=== PATIENT | female | born 1960 | race Caucasian/White ===

== ENCOUNTER → 2019-07-11 13:56 | Outpatient (CLI) | payer OTHER, SELFPAY ==
--- NOTE | 2019-07-11 | DI.RAD.S_ITS ---
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 COMPARISON: None. FINDINGS: Bones: No fractures or dislocations. No suspicious bony lesions. Visualized ribs appear intact. Mild AC joint degeneration. Mild glenohumeral degenerative joint disease. Soft tissues: No suspicious soft tissue calcifications. IMPRESSION: Mild left shoulder joint degeneration. Dictated by: Olayinka Marte M.D. on 07/11/2019 at 15:43 Approved by: Olayinka Marte M.D. on 07/11/2019 at 15:44
--- NOTE | 2019-07-11 | DI.RAD.S_ITS ---
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 COMPARISON: None. FINDINGS: Bones: No fractures or dislocations to the C7 level. Oblique images demonstrate no bony foraminal stenoses. Mild right C5-C6 and C6-C7 bony foraminal narrowing. Mild left bony foraminal narrowing at C5-C6 and C6-C7. Straightening of the normal lordotic curvature. Trace retrolisthesis of C4 on C5. Multilevel degenerative endplate sclerosis and spurring. Diffuse facet arthropathy. Moderate narrowing of the C5-C6 disc space, and mild narrowing of the C4-C5 and C6-C7 disc space. Soft tissues: No prevertebral soft tissue swelling. IMPRESSION: Multilevel mid-lower cervical spondylosis and diffuse facet arthropathy. Straightening of the normal lordotic curvature. Dictated by: Olayinka Marte M.D. on 07/11/2019 at 16:30 Approved by: Olayinka Marte M.D. on 07/11/2019 at 16:34
--- NOTE | 2019-07-11 | DI.RAD.S_ITS ---
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 COMPARISON: None. FINDINGS: Bones: No fractures or dislocations. No suspicious bony lesions. Visualized ribs appear intact. Subtle calcific tendinitis. Moderate AC joint degeneration. Glenohumeral degenerative spurring and sclerosis also noted. No erosions identified. Soft tissues: No suspicious soft tissue calcifications. IMPRESSION: Mild-moderate right shoulder joint degeneration. Calcific tendinitis. Dictated by: Olayinka Marte M.D. on 07/11/2019 at 16:35 Approved by: Olayinka Marte M.D. on 07/11/2019 at 16:36
== END ==
PROVIDERS: Visit Provider Internal Medicine Rheumatology
DX: M26.611 Adhesions and ankylosis of right temporomandibular joint (principal); M05.79 Rheumatoid arthritis with rheumatoid factor of multiple sites without organ or systems involvement; M25.512 Pain in left shoulder; M25.511 Pain in right shoulder; M19.012 Primary osteoarthritis, left shoulder; M19.011 Primary osteoarthritis, right shoulder; M47.812 Spondylosis without myelopathy or radiculopathy, cervical region; M75.31 Calcific tendinitis of right shoulder; G89.29 Other chronic pain
CPT/HCPCS: 72050; 73030

== ENCOUNTER → 2019-10-07 07:22 | Outpatient (CLI) | payer OTHER, SELFPAY ==
--- NOTE | 2019-10-07 | DI.MG.S_ITS ---
BILATERAL DIGITAL SCREENING MAMMOGRAM 3D/2D WITH CAD: 10/07/2019 CLINICAL: Routine screening. Comparison is made to exams dated: 07/01/2015 mammogram, 03/27/2015 mammogram, and 07/01/2014 mammogram - [facility]. The tissue of both breasts is heterogeneously dense. This may lower the sensitivity of mammography. Current study was also evaluated with a Computer Aided Detection (CAD) system. No significant masses, calcifications, or other findings are seen in either breast. There has been no significant interval change. IMPRESSION: NEGATIVE There is no mammographic evidence of malignancy. A 1 year screening mammogram is recommended. This exam was interpreted at Station ID: [id number]. NOTE: For mammograms, a report in lay terms will be sent to the patient. Approximately 15% of breast malignancies will not be visualized mammographically. In the management of a palpable breast mass, a negative mammogram must not discourage biopsy of a clinically suspicious lesion. Electronically Signed By: Huma [email or web address]:10/07/2019 08:58:42 letter sent: Normal Exam ACR BI-RADS Category 1: Negative [id number]
== END ==
PROVIDERS: Referring Provider Internal Medicine; Visit Provider Internal Medicine
DX: Z12.31 Encounter for screening mammogram for malignant neoplasm of breast (principal)
CPT/HCPCS: 77063; 77067

== ENCOUNTER 2021-01-18 12:07 | Emergency (ER) | payer OTHER, SELFPAY ==
[2021-01-18] VITALS (13 sets, daily range): BP systolic 107–156; BP diastolic 48–86; PULSE 67–87; RESP 12–22; TEMP 36.7–36.9; O2SAT 95–100
--- NOTE | 2021-01-18 12:22 | ED.LOWEXIN ---
HPI - Extremity Injury (Lower) General Chief Complaint: Extremity Injury, Lower Stated Complaint: injured right ankle Time Seen by Provider: 01/18/21 12:08 Source: patient Mode of arrival: Wheelchair Limitations: no limitations History of Present Illness HPI Narrative: 61-year-old female nonsmoker with history of GERD and hypothyroid presents with pain and obvious deformity to R ankle after stepping awkwardly on it. She denies numbness tingling and is otherwise well. She denies other injury. She last ate breakfast this morning. She deneis any knee or hip pain. Related Data Home Medications Medication Instructions Recorded Confirmed hydroxychloroquine 200 mg tablet 200 mg PO DAILY 01/19/18 01/19/18 levothyroxine 112 mcg capsule 112 mcg PO DAILY 01/19/18 01/19/18 methotrexate sodium 2.5 mg tablet 2.5 mg PO DAILY 01/19/18 01/19/18 omeprazole 40 mg capsule,delayed 40 mg PO DAILY 01/19/18 01/19/18 release soy isoflavone-black cohosh cap PO cap 01/19/18 01/19/18 root-magnolia bark 155 mg capsule Previous Rx's Medication Instructions Recorded hydrocodone-acetaminophen 1 tab PO Q4-6H PRN #10 tab 01/18/21 Allergies Allergy/AdvReac Type Severity Reaction Status Date / Time No Known Drug Allergies Allergy Unverified 01/19/18 16:28 Review of Systems Constitutional Constitutional: Denies chills, Denies fatigue, Denies fever(s), Denies frequent falls, Denies lethargy and Denies weakness Eyes Eyes: Denies change in vision, Denies eye discharge, Denies irritation and Denies loss of vision ENT Ears, Nose, Mouth, and Throat: Denies change in voice, Denies dizziness, Denies neck pain, Denies sore throat and Denies throat swelling Cardiovascular Cardiovascular: Denies chest pain, Denies irregular heart rhythm, Denies lightheadedness, Denies palpitations, Denies dyspnea, Denies dyspnea on exertion and Denies orthopnea Respiratory Respiratory: Denies cough, Denies dyspnea, Denies dyspnea on exertion and Denies wheezing Gastrointestinal Gastrointestinal: Denies abdominal pain, Denies change in bowel habits, Denies diarrhea, Denies nausea and Denies vomiting Musculoskeletal Musculoskeletal: Reports deformity, Reports arthralgias, Denies neck pain and Denies numbness Integumentary/Breasts Skin/Breast: Denies pruritus, Denies erythema, Denies rash and Denies wounds Neurologic Neurologic: Denies behavioral changes, Denies confusion, Denies dizziness, Denies frequent falls, Denies loss of vision, Denies numbness and Denies weakness Psychiatric Psychiatric: Denies anxiety, Denies behavioral changes, Denies confusion, Denies depression, Denies homicidal ideation and Denies suicidal ideation Endocrine Endocrine: Denies fatigue, Denies flushing and Denies palpitations Hematologic/Lymphatic Hematologic/Lymphatic: Denies easy bruising Allergic/Immunologic Allergic/Immunologic: Denies urticaria, Denies throat swelling and Denies wheezing Patient History Social History Smoking Status: Never smoker Smoking Status: Never smoker alcohol intake frequency: 0-2 drinks per day Substance Use Type: does not use Exam Narrative Exam Narrative: GENERAL: [61] year old patient appears stated age. Well-nourished, well-developed patient, in mild distress. HEAD: Atraumatic. Normocephalic. EYES: Pupils equal round and reactive. Extraocular motions intact. No scleral icterus. No injection or drainage. ENT: Nose without bleeding, purulent drainage. Throat without erythema, tonsillar hypertrophy or exudate. Airway patent. NECK: Trachea midline. Non tender CARDIOVASCULAR: Regular rate and rhythm without murmurs, gallops, or rubs. RESPIRATORY: Clear to auscultation. Breath sounds equal bilaterally. No wheezes, rales, or rhonchi. GASTROINTESTINAL: Abdomen soft, non-tender, nondistended. EXTREMITIES: Obvious deformity to right angle with significant angulation suggesting fracture dislocation, it is closed, isolated and neurovascularly intact, cap refill less than 2 seconds, there is some mild tenting and minimal discoloration overlying the lateral malleolus but no break in the skin BACK: Nontender without deformity or crepitance. No flank tenderness. NEURO: AOx3. SKIN: No rash or erythema of visible areas Initial Vital Signs Initial Vital Signs: Vital Signs Temperature 98.1 F 01/18/21 12:15 Pulse Rate 78 01/18/21 12:15 Respiratory Rate 14 01/18/21 12:15 Blood Pressure 154/66 H 01/18/21 12:15 Pulse Oximetry 99 01/18/21 12:15 Procedures Orthopedic Joint Reduction Joint #1: Time Out Performed: Yes Side: right Joint Reduction Location: ankle Analgesia: procedural sedation Technique used: traction/counter-traction Post-reduction neuro exam: intact Post-reduction vascular: intact Post Reduction X-Ray Obtained: Yes Post Reduction X-Ray Results: reduced Splint Applied: Yes Patient Tolerated Procedure: Well Orthopedic Splinting/Casting Injury #1: Side: right Lower Extremity Injury Location: ankle Lower Extremity Immobilizer: posterior splint and stirrup splint Post splinting neuro exam: intact Post splinting vascular exam: intact Placed by: Nursing Procedural Sedation Consent signed: Yes Time out performed: Yes Indication: fracture/dislocation reduction ASA Class: II Mallampati Airway Classification: Class II Preparation: court recording monitor applied, pulse oximeter, capnometry used, supplemental O2 applied, suction/airway equipment at bedside and IV secured IV Propofol dose (mg): 90 Intraservice time/total sedation time (min): 10 ED Sedation Level: Moderate (Concious) Patient Tolerated Procedure: Well Complications: none Course Orders Ordered: Discontinued Medications Propofol (Propofol 200 Mg/20 Ml Vial) 90 mg 1 mg/kg (90 mg) IV NOW ONE Stop: 01/18/21 12:37 Last Admin: 01/18/21 12:53 Dose: 90 mg Documented by: JENNA Consultations Consultation #1: Discussed with on-call orthopedist, recommends CT prior to discharge Vital Signs Vital signs: Vital Signs - 8 hr 01/18/21 12:15 01/18/21 12:45 01/18/21 12:50 Temperature 98.1 F 98.5 F Pulse Rate 78 79 Respiratory Rate 14 17 12 Blood Pressure 154/66 H Blood Pressure [Right Arm] 154/86 H Pulse Oximetry 99 97 01/18/21 12:53 01/18/21 12:55 01/18/21 12:58 Temperature Pulse Rate 82 87 75 Respiratory Rate 20 18 21 Blood Pressure Blood Pressure [Right Arm] 156/76 H 122/57 L Pulse Oximetry 99 98 95 01/18/21 13:00 01/18/21 13:05 01/18/21 13:10 Temperature Pulse Rate 76 71 78 Respiratory Rate 17 19 20 Blood Pressure Blood Pressure [Right Arm] 122/57 L 115/54 L 107/52 L Pulse Oximetry 99 97 99 01/18/21 13:15 01/18/21 13:20 01/18/21 13:25 Temperature Pulse Rate 78 71 67 Respiratory Rate 22 20 17 Blood Pressure Blood Pressure [Right Arm] 114/58 L 110/55 L 116/55 L Pulse Oximetry 98 99 100 MDM - Extremity Injury (Lower) Lab Data Labs: Point of Care Testing Test Results Not applicable Imaging Data CT LE: Radiologist's Impression: Luna Stuart 61 F [address] [id number] Scan ReportSigned Patient: Isabel Stuart#: [id number]: 1960cct:[id number]/Sex: 61 / FDate of Service: 01/18/21Loc: EDAccession Number: [id number] Procedure: CT LE RT wo con Ordering Provider: Micky Vaca D.O. PROCEDURE: CT LE RT WO CON INDICATIONS: complex fracture dislocation, request per ortho right ankle TECHNIQUE: Noncontrast 1-1.5 mm axial sections acquired from above the tibiotalar joint to the bottom of the calcaneus, with coronal and sagittal reformats. COMPARISON: [facility], CR, XR ANKLE RT MIN 3V, 01/18/2021, 12:26. [facility], CR, XR ANKLE RT 2V, 01/18/2021, 13:08. FINDINGS: Image quality: Excellent. Bones: Acute comminuted and displaced fracture involving posterior medial aspect of the talus is seen with posterior and medial displacement of the fractured fragments and up to 6 mm diastasis at fracture site. Comminuted fracture involving tip of lateral malleolus is seen with up to 3 millimeter distal displacement of the fractured fragments. Oblique fracture through dorsal and lateral periphery of distal calcaneus adjacent to calcaneocuboid joint is seen with dorsal and distal displacement of fracture fragment. No other fracture or dislocation is seen. Soft tissues: There is diffuse soft tissue swelling around ankle joint. Moderate tibiotalar and subtalar joint effusion is seen. No abnormal soft tissue calcifications. Plantar aponeurosis is grossly intact. Achilles tendon is grossly intact. There is no full-thickness extensor, flexor, or peroneus tendon rupture. IMPRESSION: 1. Acute comminuted and displaced fracture involving posterior medial aspect of talus with slight posterior and medial displacement of the fractured fragments. 2. Acute comminuted fracture involving tip of lateral malleolus with inferior displacement of fractured fragments. 3. Acute comminuted oblique fracture through dorsal and lateral periphery of distal calcaneus adjacent to calcaneocuboid joint with dorsal and distal displacement of fractured fragments. 3. Soft tissue swelling around ankle joint. Moderate amount of joint effusion. No gross abnormal soft tissue calcifications. No gross full-thickness ankle tendon rupture. Dictated by: Roscoe Nunes M.D. on 01/18/2021 at 14:48 Approved by: Roscoe Nunes M.D. on 01/18/2021 at 14:54 Discharge Plan Departure Patient Disposition: Home Clinical Impression: Ankle fracture Qualifiers: Encounter type: initial encounter Fracture type: closed Laterality: right Qualified Code(s): S82.891A - Other fracture of right lower leg, initial encounter for closed fracture Instructions: Ankle Fracture Activity Restrictions/Additional Instructions: *You have been diagnosed with [right ankle fracture dislocation] *What to do: *Please continue to take your regular medications as directed. [ ] New medication prescriptions sent to your pharmacy: [ ] [x ] New medication written as a paper prescription [ ] No new medications given *Please follow up with the Orthopedic Office (Dr. Moran) in 2-3 days, call for an appointment. Let them know you were seen in the Emergency Department and that we ask that you be seen in follow up. We will electronically transmit a record of today's note if your PCP is in our system NO WEIGHT BEARING *If you do not have a primary care provider please contact the [facility] Resource line at [phone]. They will ask some questions about your medical history and help get you set up with a doctor in the community. *Return to Emergency Department if you should have any new, worsening or concerning symptoms, such as [fever greater than 101 F, shaking chills, worsening pain, persistent vomiting or other bothersome symptoms] Prescriptions: New hydrocodone-acetaminophen 5-325 mg tablet 1 tab PO Q4-6H PRN (Reason: pain) Qty: 10 RF: 0 No Action omeprazole 40 mg capsule,delayed release(DR/EC) 40 mg PO DAILY RF: 0 methotrexate sodium 2.5 mg tablet 2.5 mg PO DAILY RF: 0 hydroxychloroquine 200 mg tablet 200 mg PO DAILY RF: 0 levothyroxine 112 mcg capsule 112 mcg PO DAILY RF: 0 soy isofla-blk cohosh-mag bark [Estroven] 155 mg capsule PO RF: 0 Referrals: Marissa Moran MD [Physician] -
--- NOTE | 2021-01-18 12:28 | PC.NURSE ---
Pulse to right foot intact, measured with doppler.
[2021-01-18] MEDS: propofoL 200 MG/20 ML VIAL 90 MG IV (12:53)
--- NOTE | 2021-01-18 12:58 | DI.RAD.S_ITS ---
PROCEDURE: XR ANKLE RT 2V INDICATIONS: post reduction TECHNIQUE: 2 views of the ankle were acquired. COMPARISON: [facility], CR, XR ANKLE RT MIN 3V, 01/18/2021, 12:26. FINDINGS: Bones: There is interval reduction of earlier noted lateral dislocation at subtalar joint and talonavicular joint with currently anatomic ankle alignment. Fracture involving tip of lateral malleolus is seen cortical irregularity involving medial cortex of talus is also noted suggestive of minimally displaced fracture in this area. Ankle mortise is normally aligned. No suspicious bony lesions. Soft tissues: No tibiotalar joint effusion. Achilles tendon appears normal. IMPRESSION: Interval reduction of earlier noted lateral dislocation involving talonavicular joint and subtalar joint with anatomic ankle alignment. Minimally displaced fractures involving medial aspect of talus and tip of lateral malleolus. Dictated by: Roscoe Nunes M.D. on 01/18/2021 at 13:33 Approved by: Roscoe Nunes M.D. on 01/18/2021 at 13:36
--- NOTE | 2021-01-18 14:49 | DI.CT.S_ITS ---
PROCEDURE: CT LE RT WO CON INDICATIONS: complex fracture dislocation, request per ortho right ankle TECHNIQUE: Noncontrast 1-1.5 mm axial sections acquired from above the tibiotalar joint to the bottom of the calcaneus, with coronal and sagittal reformats. COMPARISON: [facility], CR, XR ANKLE RT MIN 3V, 01/18/2021, 12:26. [facility], CR, XR ANKLE RT 2V, 01/18/2021, 13:08. FINDINGS: Image quality: Excellent. Bones: Acute comminuted and displaced fracture involving posterior medial aspect of the talus is seen with posterior and medial displacement of the fractured fragments and up to 6 mm diastasis at fracture site. Comminuted fracture involving tip of lateral malleolus is seen with up to 3 millimeter distal displacement of the fractured fragments. Oblique fracture through dorsal and lateral periphery of distal calcaneus adjacent to calcaneocuboid joint is seen with dorsal and distal displacement of fracture fragment. No other fracture or dislocation is seen. Soft tissues: There is diffuse soft tissue swelling around ankle joint. Moderate tibiotalar and subtalar joint effusion is seen. No abnormal soft tissue calcifications. Plantar aponeurosis is grossly intact. Achilles tendon is grossly intact. There is no full-thickness extensor, flexor, or peroneus tendon rupture. IMPRESSION: 1. Acute comminuted and displaced fracture involving posterior medial aspect of talus with slight posterior and medial displacement of the fractured fragments. 2. Acute comminuted fracture involving tip of lateral malleolus with inferior displacement of fractured fragments. 3. Acute comminuted oblique fracture through dorsal and lateral periphery of distal calcaneus adjacent to calcaneocuboid joint with dorsal and distal displacement of fractured fragments. 3. Soft tissue swelling around ankle joint. Moderate amount of joint effusion. No gross abnormal soft tissue calcifications. No gross full-thickness ankle tendon rupture. Dictated by: Roscoe Nunes M.D. on 01/18/2021 at 14:48 Approved by: Roscoe Nunes M.D. on 01/18/2021 at 14:54
== END 2021-01-18 14:59 | disposition home or self-care (01) ==
PROVIDERS: Emergency Provider Emergency Medicine
DX: S82.891A Other fracture of right lower leg, initial encounter for closed fracture (principal); X58.XXXA Exposure to other specified factors, initial encounter
CPT/HCPCS: 27810; 29515; 36415; 73600; 73700; 99152; 99284; 99285; J2704